=== PATIENT | female | born 1950 | race Caucasian/White ===

== ENCOUNTER → 2017-06-19 07:14 | Outpatient (CLI) | payer OTHER | END | disposition home or self-care (01) | LOC: LAB 07:14 | DX: D55.8 Other anemias due to enzyme disorders (principal); I11.9 Hypertensive heart disease without heart failure; D53.8 Other specified nutritional anemias; E78.2 Mixed hyperlipidemia; E04.0 Nontoxic diffuse goiter; D58.2 Other hemoglobinopathies; E20.0 Idiopathic hypoparathyroidism; E61.2 Magnesium deficiency; E61.7 Deficiency of multiple nutrient elements ==

== ENCOUNTER → 2017-06-26 | Outpatient (CLI) | payer OTHER | END | disposition home or self-care (01) | LOC: MAMO-SONO 08:45 | DX: Z12.31 Encounter for screening mammogram for malignant neoplasm of breast (principal); N60.11 Diffuse cystic mastopathy of right breast ==

== ENCOUNTER 2018-01-07 14:53 | Outpatient (CLI) | payer OTHER | END 2018-01-07 14:54 | disposition home or self-care (01) | LOC: LAB 14:53 | DX: E22.0 Acromegaly and pituitary gigantism (principal); I11.0 Hypertensive heart disease with heart failure; N39.0 Urinary tract infection, site not specified; D53.8 Other specified nutritional anemias; E11.9 Type 2 diabetes mellitus without complications; E78.2 Mixed hyperlipidemia; E04.0 Nontoxic diffuse goiter ==

== ENCOUNTER → 2018-06-13 | Outpatient (CLI) | payer OTHER | END | disposition home or self-care (01) | LOC: RAD 501 09:54 | DX: R07.89 Other chest pain (principal) ==

== ENCOUNTER 2018-09-05 08:10 | Outpatient (CLI) | payer OTHER | END 2018-09-05 10:00 | disposition home or self-care (01) | LOC: LAB 08:10 | DX: E55.9 Vitamin D deficiency, unspecified (principal); E61.2 Magnesium deficiency; E61.7 Deficiency of multiple nutrient elements; E20.0 Idiopathic hypoparathyroidism; N39.0 Urinary tract infection, site not specified; D68.8 Other specified coagulation defects; D64.89 Other specified anemias; E03.8 Other specified hypothyroidism ==

== ENCOUNTER 2018-10-01 07:27 | Outpatient (CLI) | payer OTHER | END 2018-10-01 07:30 | disposition home or self-care (01) | LOC: NUCLEAR 07:27 | DX: I20.9 Angina pectoris, unspecified (principal) ==

== ENCOUNTER 2018-10-01 08:59 | Outpatient (CLI) | payer OTHER | END 2018-10-01 09:14 | disposition home or self-care (01) | LOC: MAMO-SONO 08:59 | DX: Z12.31 Encounter for screening mammogram for malignant neoplasm of breast (principal); Z87.898 Personal history of other specified conditions; N60.11 Diffuse cystic mastopathy of right breast; N60.12 Diffuse cystic mastopathy of left breast; E03.8 Other specified hypothyroidism; J45.998 Other asthma; E04.1 Nontoxic single thyroid nodule ==

== ENCOUNTER → 2019-02-21 | Outpatient (CLI) | payer OTHER | END | disposition home or self-care (01) | LOC: TOM 08:39 | DX: R10.9 Unspecified abdominal pain (principal) ==

== ENCOUNTER 2019-02-25 07:30 | Outpatient (CLI) | payer OTHER | END 2019-02-25 07:35 | disposition home or self-care (01) | LOC: LAB 07:30 | DX: R10.84 Generalized abdominal pain (principal); E03.8 Other specified hypothyroidism; E78.49 Other hyperlipidemia ==

== ENCOUNTER 2019-08-04 11:22 | Outpatient (CLI) | payer OTHER | END 2019-08-05 15:43 | disposition home or self-care (01) | LOC: SONOGRAMA 11:22 | DX: N93.8 Other specified abnormal uterine and vaginal bleeding (principal) ==

== ENCOUNTER 2019-08-07 07:49 | Outpatient (CLI) | payer OTHER | END 2019-08-07 08:00 | disposition home or self-care (01) | LOC: LAB 07:49 | DX: I11.0 Hypertensive heart disease with heart failure (principal); D53.8 Other specified nutritional anemias; E78.2 Mixed hyperlipidemia; E04.0 Nontoxic diffuse goiter; N30.00 Acute cystitis without hematuria; B96.89 Other specified bacterial agents as the cause of diseases classified elsewhere ==

== ENCOUNTER → 2020-06-05 | Outpatient (CLI) | payer OTHER | END | disposition home or self-care (01) | LOC: PPH VACUNA | PROVIDERS: ATTEND Emergency Medicine Pediatric Emergency Medicine | DX: Z23 Encounter for immunization (principal) ==

== ENCOUNTER → 2020-07-19 07:31 | Outpatient (CLI) | payer OTHER | END | disposition home or self-care (01) | LOC: LAB 07:31 | PROVIDERS: ATTEND Internal Medicine Endocrinology, Diabetes & Metabolism | DX: D53.8 Other specified nutritional anemias (principal); E04.8 Other specified nontoxic goiter; E55.9 Vitamin D deficiency, unspecified; N39.0 Urinary tract infection, site not specified; E61.3 Manganese deficiency; E61.7 Deficiency of multiple nutrient elements; I11.0 Hypertensive heart disease with heart failure; N20.0 Calculus of kidney ==

== ENCOUNTER → 2020-07-20 | Outpatient (CLI) | payer OTHER | END | disposition home or self-care (01) | LOC: SONOGRAMA 07:03 | PROVIDERS: ATTEND Urology | DX: D18.09 Hemangioma of other sites (principal); R10.84 Generalized abdominal pain ==

== ENCOUNTER 2020-08-17 08:56 | Outpatient (CLI) | payer OTHER | END 2020-08-17 09:03 | disposition home or self-care (01) | LOC: LAB 08:56 | PROVIDERS: ATTEND Urology | DX: M30.0 Polyarteritis nodosa (principal) ==

== ENCOUNTER → 2020-11-18 10:32 | Outpatient (CLI) | payer OTHER | END | disposition home or self-care (01) | LOC: LAB 10:32 | PROVIDERS: ATTEND Urology | DX: N30.10 Interstitial cystitis (chronic) without hematuria (principal) ==

== ENCOUNTER 2021-02-23 14:00 | Outpatient (CLI) | payer OTHER | END 2021-02-23 15:00 | disposition home or self-care (01) | LOC: PPH VACUNA 14:00 | PROVIDERS: ATTEND Emergency Medicine Pediatric Emergency Medicine | DX: Z23 Encounter for immunization (principal) ==

== ENCOUNTER 2021-03-07 07:25 | Outpatient (CLI) | payer OTHER | END 2021-03-07 08:00 | disposition home or self-care (01) | LOC: MAMO-SONO 07:25 | PROVIDERS: ATTEND Obstetrics & Gynecology | DX: N60.11 Diffuse cystic mastopathy of right breast (principal); Z12.31 Encounter for screening mammogram for malignant neoplasm of breast ==

== ENCOUNTER 2021-07-14 07:47 | Outpatient (CLI) | payer OTHER | END 2021-07-14 08:19 | disposition home or self-care (01) | LOC: LAB 07:47 | PROVIDERS: ATTEND Internal Medicine Endocrinology, Diabetes & Metabolism | DX: E22.0 Acromegaly and pituitary gigantism (principal); E61.3 Manganese deficiency; E61.7 Deficiency of multiple nutrient elements; E04.9 Nontoxic goiter, unspecified; I11.0 Hypertensive heart disease with heart failure; D53.9 Nutritional anemia, unspecified; N39.0 Urinary tract infection, site not specified; E11.9 Type 2 diabetes mellitus without complications ==

== ENCOUNTER 2022-02-13 12:27 | Outpatient (CLI) | payer OTHER | END 2022-02-13 12:33 | disposition home or self-care (01) | LOC: LAB 12:27 | PROVIDERS: ATTEND Urology | DX: Z20.822 Contact with and (suspected) exposure to COVID-19 (principal) ==

== ENCOUNTER 2022-06-09 07:20 | Outpatient (CLI) | payer OTHER | END 2022-06-09 07:28 | disposition home or self-care (01) | LOC: LAB 07:20 | PROVIDERS: ATTEND Internal Medicine Endocrinology, Diabetes & Metabolism | DX: E11.9 Type 2 diabetes mellitus without complications (principal); E78.2 Mixed hyperlipidemia; E04.9 Nontoxic goiter, unspecified; N18.2 Chronic kidney disease, stage 2 (mild); E61.3 Manganese deficiency; E61.7 Deficiency of multiple nutrient elements ==

== ENCOUNTER 2022-09-08 07:07 | Outpatient (CLI) | payer OTHER | END 2022-09-08 08:00 | disposition home or self-care (01) | LOC: MAMO-SONO 07:07 | PROVIDERS: ATTEND Obstetrics & Gynecology | DX: N93.8 Other specified abnormal uterine and vaginal bleeding (principal); N60.11 Diffuse cystic mastopathy of right breast ==

== ENCOUNTER 2022-11-24 07:13 | Outpatient (CLI) | payer OTHER | END 2022-11-24 07:15 | disposition home or self-care (01) | LOC: LAB 07:13 | PROVIDERS: ATTEND Internal Medicine Endocrinology, Diabetes & Metabolism | DX: I11.0 Hypertensive heart disease with heart failure (principal); D53.9 Nutritional anemia, unspecified; N39.0 Urinary tract infection, site not specified; E78.2 Mixed hyperlipidemia; E04.9 Nontoxic goiter, unspecified; N36.2 Urethral caruncle; K76.1 Chronic passive congestion of liver; E22.2 Syndrome of inappropriate secretion of antidiuretic hormone; N18.2 Chronic kidney disease, stage 2 (mild) ==

== ENCOUNTER 2024-02-05 07:49 | Outpatient (CLI) | payer OTHER ==
[2024-02-05 10:30] LABS: ALBUMIN 3.8 gm/dL (3.4-5.0); BILIRUBIN TOTAL 1.89 mg/dL (0.3-1.2); CALCIUM 9.5 mg/dL (8.5-10.1); CREATININE SERUM 0.8 mg/dL (0.55-1.02); GFR 70.71; GLOBULINA 3.1 G/DL (2.4-3.5); POTASSIUM 5.29 mEq/L (3.5-5.1); TOTAL PROTEIN 6.9 gm/dL (6.4-8.2)
== END 2024-02-05 07:54 | disposition home or self-care (01) ==
LOC: LAB 07:49
PROVIDERS: ATTEND Obstetrics & Gynecology Gynecologic Oncology
DX: I10 Essential (primary) hypertension (principal)

== ENCOUNTER → 2024-02-07 | Outpatient (CLI) | payer OTHER | END | disposition home or self-care (01) | LOC: MRI 11:22 | PROVIDERS: ATTEND Obstetrics & Gynecology Gynecologic Oncology | DX: N95.0 Postmenopausal bleeding (principal) | CPT/HCPCS: 72197; Q9965 ==

== ENCOUNTER 2024-04-11 06:51 | Outpatient (CLI) | payer OTHER ==
[2024-04-11 07:51] LABS: PH,URINE 5.5 (5.0-8.0); URINE APPEARANCE Clear; URINE BACTERIA 42.8 uL (0.0-1933); URINE BILIRRUBIN Negative (NEGATIVE); URINE BLOOD Negative; URINE COLOR Yellow; URINE EPITHELIAL CELLS 6.6 uL (0.0-38.8); URINE GLUCOSE Negative (NEGATIVE); URINE KETONE Negative (NEGATIVE); URINE LEUKOCYTE Small; URINE NITRATE Negative; URINE PROTEIN Negative (NEGATIVE); URINE RBC 5.8 uL (0.0-20.8); URINE UROBILINOGEN 0.2 E.U./dl; URINE WBC 48.9 uL (0.0-23.2)
[2024-04-11 07:54] LABS: HEMATOCRIT 41.9 % (36.0-45.00); HEMOGLOBIN 14.6 g/dL (12.0-15.00); MEAN CORPUSCULAR HEMOGLOBIN 31.1 pg (27.00-32.0); MEAN CORPUSCULAR HGB CONC 34.9 g/dl (32.0-36.0); PLATELET COUNT 273 K/uL (150-450); RED CELL DISTRIBUTION WIDTH 14.1 % (11.5-14.5)
[2024-04-11 08:31] LABS: ALBUMIN 3.6 gm/dL (3.4-5.0); BILIRUBIN TOTAL 1.88 mg/dL (0.3-1.2); CALCIUM 9.1 mg/dL (8.5-10.1); CHOL HDL RATIO 1.7 (0-5.0); CREATININE SERUM 0.87 mg/dL (0.55-1.02); GFR 64.18; POTASSIUM 4.74 mEq/L (3.5-5.1); T4 FREE 1.05 NG/ML (0.76-1.46); TOTAL PROTEIN 6.6 gm/dL (6.4-8.2); TSH 1.41 uIU/mL (0.358-3.74)
== END 2024-04-11 06:52 | disposition home or self-care (01) ==
LOC: LAB 06:51
PROVIDERS: ATTEND Internal Medicine Endocrinology, Diabetes & Metabolism
DX: I11.9 Hypertensive heart disease without heart failure (principal); D53.9 Nutritional anemia, unspecified; E78.2 Mixed hyperlipidemia; N39.0 Urinary tract infection, site not specified; E04.9 Nontoxic goiter, unspecified; E11.9 Type 2 diabetes mellitus without complications

== ENCOUNTER → 2024-04-28 08:07 | Outpatient (CLI) | payer OTHER ==
[2024-04-29 10:10] LABS: ACTH 6.8 pg/mL (7.2-63.3); CA 125 6.9 U/mL (0.0-38.1); ESTRADIOL SERUM < 5.0 pg/mL (0.0-54.7); LEUTEINIZING HORMONE 40.5 mIU/mL (7.7-58.5); PROGESTERONA 0.1 ng/mL (.); PROLACTIN 7.8 ng/mL (3.6-25.2); TESTOSTERONE,TOTAL < 3.00 ng/dL (3-67)
[2024-04-30 16:10] LABS: VON WILLERBRAND ACTIVITY 179 % (50-200); VON WILLERBRAND ANTIGEN 164 % (50-200)
[2024-05-01 00:04] LABS: DHEA 63 ng/dL (21-402); T T < 3 ng/dL (3-67); test free 0.3 pg/mL (0.0-4.2)
== END | disposition home or self-care (01) ==
LOC: LAB 08:07
PROVIDERS: ATTEND Internal Medicine Endocrinology, Diabetes & Metabolism
DX: E28.1 Androgen excess (principal); E27.9 Disorder of adrenal gland, unspecified; E25.0 Congenital adrenogenital disorders associated with enzyme deficiency; D56.1 Beta thalassemia; D58.0 Hereditary spherocytosis; C20 Malignant neoplasm of rectum; N93.8 Other specified abnormal uterine and vaginal bleeding; N93.9 Abnormal uterine and vaginal bleeding, unspecified

== ENCOUNTER → 2024-06-03 07:07 | Outpatient (CLI) | payer OTHER ==
[2024-06-03 08:06] LABS: URINE APPEARANCE Clear; URINE BILIRRUBIN Negative (NEGATIVE); URINE BLOOD Small; URINE COLOR Yellow; URINE GLUCOSE Negative (NEGATIVE); URINE KETONE Negative (NEGATIVE); URINE LEUKOCYTE Small; URINE NITRATE Negative; URINE PROTEIN Negative (NEGATIVE); URINE UROBILINOGEN 0.2 E.U./dl
[2024-06-03 08:10] LABS: URINE BACTERIA 14.6 uL (0.0-1933); URINE EPITHELIAL CELLS 2.6 uL (0.0-38.8); URINE RBC 15.6 uL (0.0-20.8)
[2024-06-03 08:31] LABS: HEMATOCRIT 39.6 % (36.0-45.00); HEMOGLOBIN 13.5 g/dL (12.0-15.00); MEAN CELL VOLUME 90.4 fL (80.00-100.00); MEAN CORPUSCULAR HEMOGLOBIN 30.8 pg (27.00-32.0); PLATELET COUNT 252 K/uL (150-450); RED BLOOD COUNT 4.38 M/uL (4.00-6.00); RED CELL DISTRIBUTION WIDTH 14.1 % (11.5-14.5)
[2024-06-03 08:42] LABS: INR 1.03; PARTIAL THROMBOPLASTIN TIME 27.2 SECONDS (22.0-34.0); PROTHROMBIN TIME 11.2 SECONDS (9.0-11.5)
[2024-06-03 08:45] LABS: URINE CAST 0.14 uL (0.0-1.40)
[2024-06-03 09:22] LABS: ALBUMIN 3.6 gm/dL (3.4-5.0); BILIRUBIN TOTAL 1.88 mg/dL (0.3-1.2); CREATININE SERUM 0.73 mg/dL (0.55-1.02); GFR 78.59; GLOBULINA 2.8 G/DL (2.4-3.5); POTASSIUM 4.5 mEq/L (3.5-5.1); TOTAL PROTEIN 6.4 gm/dL (6.4-8.2)
== END | disposition home or self-care (01) ==
LOC: RAD 07:07
PROVIDERS: ATTEND Obstetrics & Gynecology Gynecologic Oncology
DX: I10 Essential (primary) hypertension (principal); Z01.818 Encounter for other preprocedural examination; Z20.822 Contact with and (suspected) exposure to COVID-19; N92.0 Excessive and frequent menstruation with regular cycle; N39.0 Urinary tract infection, site not specified

== ENCOUNTER 2024-06-19 06:00 | Day surgery (SDC) | payer OTHER ==
[2024-06-12 11:59] VITALS: BP 113/72
[~2024-06-19] VITALS: Ht 157.5 cm; Wt 49.9 kg
[~2024-06-19 06:00] MED LIST: SYNTHROID88 MCG PO; VYZULTA
[2024-06-19] MEDS ORDERED: POVIDONE-IODINE 118 ML BOTT TOP ONE (07:13)
[2024-06-19] MEDS ORDERED: METRONIDAZOLE/SODIUM CHLORIDE 500 MG/100 ML PIGGYBACK IV ONE (07:22)
[2024-06-19] MEDS ORDERED: CEFAZOLIN SODIUM 1,000 MG VIAL ONE (07:22)
[2024-06-19] MEDS ORDERED: KETOROLAC TROMETHAMINE 30 MG VIAL IV STA (08:11)
== END 2024-06-19 12:05 | disposition home or self-care (01) ==
LOC: CIR.AMB 06:00
PROVIDERS: ATTEND Obstetrics & Gynecology Gynecologic Oncology
DX: N87.0 Mild cervical dysplasia (principal); N95.0 Postmenopausal bleeding; E03.8 Other specified hypothyroidism

== ENCOUNTER → 2024-08-29 08:31 | Outpatient (CLI) | payer OTHER ==
[2024-08-29 09:43] LABS: HEMATOCRIT 39.1 % (36.0-45.00); HEMOGLOBIN 13.7 g/dL (12.0-15.00); MEAN CELL VOLUME 89.1 fL (80.00-100.00); MEAN CORPUSCULAR HEMOGLOBIN 31.2 pg (27.00-32.0); MEAN CORPUSCULAR HGB CONC 35.1 g/dl (32.0-36.0); PLATELET COUNT 264 K/uL (150-450); RED BLOOD COUNT 4.39 M/uL (4.00-6.00); RED CELL DISTRIBUTION WIDTH 14.2 % (11.5-14.5)
[2024-08-29 09:45] LABS: URINE APPEARANCE Clear; URINE BILIRRUBIN Negative (NEGATIVE); URINE BLOOD Negative; URINE COLOR Yellow; URINE GLUCOSE Negative (NEGATIVE); URINE KETONE Negative (NEGATIVE); URINE LEUKOCYTE Trace; URINE NITRATE Negative; URINE PROTEIN Negative (NEGATIVE); URINE UROBILINOGEN 0.2 E.U./dl
[2024-08-29 09:51] LABS: URINE BACTERIA 14.6 uL (0.0-1933); URINE RBC 7.3 uL (0.0-20.8); URINE WBC 8.2 uL (0.0-23.2)
[2024-08-29 10:16] LABS: URINE EPITHELIAL CELLS 0.9 uL (0.0-38.8)
[2024-08-29 10:58] LABS: ALBUMIN 3.6 gm/dL (3.4-5.0); BILIRUBIN TOTAL 1.66 mg/dL (0.3-1.2); CALCIUM 9.1 mg/dL (8.5-10.1); CREATININE SERUM 0.75 mg/dL (0.55-1.02); GFR 75.96; GLOBULINA 3.1 G/DL (2.4-3.5); T4 FREE 1.36 NG/ML (0.76-1.46); TOTAL PROTEIN 6.7 gm/dL (6.4-8.2); TSH 0.445 uIU/mL (0.358-3.74)
== END | disposition home or self-care (01) ==
LOC: LAB 08:31
PROVIDERS: ATTEND Internal Medicine Endocrinology, Diabetes & Metabolism
DX: I11.9 Hypertensive heart disease without heart failure (principal); E04.9 Nontoxic goiter, unspecified; E78.2 Mixed hyperlipidemia; N63.10 Unspecified lump in the right breast, unspecified quadrant; D53.9 Nutritional anemia, unspecified; N39.0 Urinary tract infection, site not specified; R73.02 Impaired glucose tolerance (oral)

== ENCOUNTER 2024-09-05 10:30 | Outpatient (CLI) | payer OTHER | END 2024-09-05 10:33 | disposition home or self-care (01) | LOC: MAMO-SONO 10:30 | PROVIDERS: ATTEND Obstetrics & Gynecology | DX: N60.11 Diffuse cystic mastopathy of right breast (principal); Z12.31 Encounter for screening mammogram for malignant neoplasm of breast ==

== ENCOUNTER 2024-11-13 11:07 | Outpatient (CLI) | payer OTHER | END 2024-11-13 11:11 | disposition home or self-care (01) | LOC: SONOGRAMA 11:07 | PROVIDERS: ATTEND Obstetrics & Gynecology Gynecologic Oncology | DX: N85.00 Endometrial hyperplasia, unspecified (principal) ==

== ENCOUNTER 2024-12-15 09:20 | Outpatient (CLI) | payer OTHER | END 2024-12-15 09:26 | disposition home or self-care (01) | LOC: MRI 09:20 | PROVIDERS: ATTEND Urology | DX: M25.512 Pain in left shoulder (principal) | CPT/HCPCS: 73218 ==

== ENCOUNTER 2024-12-17 07:55 | Outpatient (CLI) | payer OTHER | END 2024-12-17 07:58 | disposition home or self-care (01) | LOC: RAD 07:55 | PROVIDERS: ATTEND Urology | DX: S40.012A Contusion of left shoulder, initial encounter (principal) ==

== ENCOUNTER 2025-03-12 08:54 | Outpatient (CLI) | payer OTHER ==
[2025-03-12 09:54] LABS: URINE APPEARANCE Clear; URINE BILIRRUBIN Negative (NEGATIVE); URINE BLOOD Negative; URINE COLOR Yellow; URINE GLUCOSE Negative (NEGATIVE); URINE KETONE Negative (NEGATIVE); URINE LEUKOCYTE Negative; URINE NITRATE Negative; URINE PROTEIN Negative (NEGATIVE); URINE UROBILINOGEN 0.2 E.U./dl
[2025-03-12 09:57] LABS: BASO % 1.1 % (0.1-1.2); EOS # 0.16 (0.04-0.54); EOS % 3.5 % (0.7-7.0); LYMPH # 1.03 (1.18-3.74); LYMPH % 22.5 % (19.3-53.1); MEAN PLATELET VOLUME 8.80 fl (9.4-12.4); MONO # 0.49 (0.24-0.82); MONO % 10.7 % (4.7-12.5); NEUT # 2.83 (1.56-6.13); NEUT % 61.8 % (34.0-71.1); RED CELL DISTRIBUTION WIDTH 13.4 % (11.6-14.4)
[2025-03-12 09:58] LABS: URINE RBC 9.5 uL (0.0-20.8)
[2025-03-12 10:34] LABS: URINE BACTERIA 3.5 uL (0.0-1933); URINE CAST 0.00 uL (0.0-1.40); URINE EPITHELIAL CELLS 0.6 uL (0.0-38.8); URINE WBC 1.0 uL (0.0-23.2)
[2025-03-12 10:40] LABS: ALT/SGPT 22.0 U/L (12-78); AST/SGOT 15.0 U/L (15-37); BILIRUBIN TOTAL 1.88 mg/dL (0.3-1.2); BUN CREA RATIO 21.0 (7.0-25.0); CHOL HDL RATIO 2.0 (0-5.0); CREATININE SERUM 0.75 mg/dL (0.55-1.02); GFR 75.96; GLOBULINA 3.1 G/DL (2.4-3.5); GLUCOSE FASTING 88.0 mg/dL (65-100); HDL 107.0 mg/dl (40-60); LDL 92.0 mg/dl (0-130); OSMOLALITY SERUM 287.0 MOSM/KG (275-295); VLDL 9.0 (0-39)
[2025-03-12 10:57] LABS: VITAMIN D3 25 HYDROXY 28.75 ng/ml (30-120)
[2025-03-12 11:00] LABS: T4 FREE 1.03 NG/ML (0.76-1.46); TSH 2.19 uIU/mL (0.358-3.74)
== END 2025-03-12 09:02 | disposition home or self-care (01) ==
LOC: LAB 08:54
PROVIDERS: ATTEND Internal Medicine Endocrinology, Diabetes & Metabolism
DX: E55.9 Vitamin D deficiency, unspecified (principal); E23.1 Drug-induced hypopituitarism; E04.9 Nontoxic goiter, unspecified; E78.2 Mixed hyperlipidemia; I11.0 Hypertensive heart disease with heart failure; N39.0 Urinary tract infection, site not specified; D53.9 Nutritional anemia, unspecified; Z12.11 Encounter for screening for malignant neoplasm of colon; D56.9 Thalassemia, unspecified

== ENCOUNTER 2025-03-13 14:15 | Outpatient (CLI) | payer OTHER ==
[2025-03-13 16:00] LABS: ob NEGATIVE (NEGATIVE)
== END 2025-03-13 14:50 | disposition home or self-care (01) ==
LOC: LAB 14:15
PROVIDERS: ATTEND Internal Medicine Endocrinology, Diabetes & Metabolism
DX: E55.9 Vitamin D deficiency, unspecified (principal); E23.1 Drug-induced hypopituitarism; E04.9 Nontoxic goiter, unspecified; E78.2 Mixed hyperlipidemia; I11.0 Hypertensive heart disease with heart failure; N39.0 Urinary tract infection, site not specified; D53.9 Nutritional anemia, unspecified; Z12.11 Encounter for screening for malignant neoplasm of colon; D56.9 Thalassemia, unspecified